=== PATIENT | female | born 1955 | race Caucasian/White ===

== ENCOUNTER 2017-06-05 22:22 | Observation (INO) | payer OTHER ==
[~2017-06-05] VITALS: Ht 165.1 cm; Wt 87.7 kg
[2017-06-06] VITALS (23 sets, daily range): BP systolic 95–151; BP diastolic 47–78; PULSE 77–91; TEMP 98–98.8
[2017-06-06 00:09] LABS: HEMATOCRIT 21.3 % (37.0-47.0); HEMOGLOBIN 6.4 g/dl (12.5-16.0)
[2017-06-06] MEDS ORDERED: ABILIFY5 MG PO (00:29)
[2017-06-06] MEDS ORDERED: BUSPAR DIVIDOSE15 MG PO (00:30)
[2017-06-06] MEDS ORDERED: IBU800 M1 PO (00:30)
[2017-06-06] MEDS ORDERED: ZOCOR 20MG20 MG PO (00:31)
[2017-06-06] MEDS ORDERED: ULTRAM 50MG TAB50 MG PO (00:31)
[2017-06-06] MEDS ORDERED: LAMICTAL XR200 MG PO (00:31)
[2017-06-06] MEDS ORDERED: DESYREL 50MG50 MG PO (00:32)
[2017-06-06] MEDS ORDERED: EFFEXOR XR75 MG/CAP PO (00:34)
[2017-06-06] MEDS ORDERED: ASPIRIN 32325 MG/TAB PO (01:09)
[2017-06-06] MEDS ORDERED: NORCO 325 MG-51 TAB PO (01:12)
[2017-06-06] MEDS ORDERED: FERROUSGLUC256MG PO (01:14)
[2017-06-06] MEDS ORDERED: VTAMINC250TA PO (01:14)
[2017-06-06] MEDS ORDERED: BENADRYL 1%-0.11 CRE TP (01:16)
[2017-06-06 14:16] LABS: MEAN CELL VOLUME 83 fl (80.0-100.0); MEAN CORPUSCULAR HGB CONC 31 g/dl (33.0-37.0); MEAN PLATELET VOLUME 9.7 fl (7.4-10.4); PLATELET COUNT 511 K/mm3 (130-400); RED BLOOD COUNT 3.23 M/mm3 (4.10-5.30); REDCELL DISTRIBUTION WIDTH-CV 18.5 % (11.5-14.5); WHITE BLOOD COUNT 7.8 K/mm3 (4.8-10.8)
[2017-06-06 14:25] LABS: HEMATOCRIT 26.9 % (37.0-47.0); HEMOGLOBIN 8.4 g/dl (12.5-16.0); MEAN CORPUSCULAR HEMOGLOBIN 26 pg (27.0-31.0)
[2017-06-06 14:26] LABS: ADD PATHOLOGY DIFF REVIEW NO
[2017-06-06 14:27] LABS: CALCIUM 8.1 mg/dL (8.4-10.2); CREATININE, serum 0.73 mg/dL (0.52-1.25); POTASSIUM 3.4 mmol/L (3.4-5.0)
[2017-06-06 14:55] LABS: ANISOCYTOSIS 1+; BAND 3 % (0-10); EOSINOPHIL 2 % (0-4); HYPOCHROMIA 1+; NEUTROPHILS 68 % (42.0-75.2); PLATELET ESTIMATE INCREASED (NORMAL); TOTAL CELLS COUNTED 100
[2017-06-07 03:08] VITALS: BP 145/63; PULSE 93; TEMP 98.8
[2017-06-07 07:49] VITALS: BP 126/62; PULSE 86; TEMP 98.1
[2017-06-07 09:34] LABS: HEMATOCRIT 29.6 % (37.0-47.0); HEMOGLOBIN 9.1 g/dl (12.5-16.0)
[2017-06-07 12:16] VITALS: BP 98/80; PULSE 90; TEMP 97.5
[2017-06-07] MEDS ORDERED: PROTONIX 40MG T40 MG PO ×2 (15:25)
[2017-06-07] MEDS ORDERED: VTAMINC250TA PO ×2 (15:29)
[2017-06-07 15:32] VITALS: BP 127/61; PULSE 91; TEMP 98.1
== END 2017-06-07 16:32 | disposition home or self-care (01) ==
LOC: MEDICAL 23:35
PROVIDERS: Internal Medicine; Nurse Practitioner Family
DX: K22.11 Ulcer of esophagus with bleeding (principal); D62 Acute posthemorrhagic anemia; K25.7 Chronic gastric ulcer without hemorrhage or perforation; K22.2 Esophageal obstruction; K21.9 Gastro-esophageal reflux disease without esophagitis; R13.10 Dysphagia, unspecified; M25.511 Pain in right shoulder; Z96.642 Presence of left artificial hip joint; Z90.710 Acquired absence of both cervix and uterus; Z90.49 Acquired absence of other specified parts of digestive tract; Z84.89 Family history of other specified conditions; Z82.3 Family history of stroke; E78.5 Hyperlipidemia, unspecified; F32.9 Major depressive disorder, single episode, unspecified; M75.51 Bursitis of right shoulder
CPT/HCPCS: C9113; G0378; G8978-GP; G8979-GP; J0696; J1170; J2250; J2916; J3010; J7030; J7050; P9016

== ENCOUNTER → 2024-04-06 | Outpatient (CLI) | payer OTHER ==
[~2024-04-06] MED LIST: ABILIFY5 MG PO; ASPIRIN 32325 MG/TAB PO; BENADRYL 1%-0.11 CRE TP; BUSPAR DIVIDOSE15 MG PO; DESYREL 50MG50 MG PO; EFFEXOR XR75 MG/CAP PO; FERROUSGLUC256MG PO; IBU800 M1 PO; LAMICTAL XR200 MG PO; NORCO 325 MG-51 TAB PO; PROTONIX 40MG T40 MG PO; ULTRAM 50MG TAB50 MG PO; VTAMINC250TA PO; ZOCOR 20MG20 MG PO
== END ==
LOC: MC.RAD 10:14
DX: Z12.31 Encounter for screening mammogram for malignant neoplasm of breast (principal)